=== PATIENT | female | born 1980 | race African-American/Black ===

== ENCOUNTER 2016-12-17 09:52 | Emergency (ER) | payer BC ==
[~2016-12-17] VITALS: Ht 162.6 cm; Wt 71.7 kg
--- NOTE | ~2016-12-17 | CR181 ---
[facility]. [facility] A Service [facility] RADIOLOGY TEXT RESULTS PATIENT: SULMA ROBBINS LOCATION: SED : 76 UNIT #: [id number] AGE: [address]: Josie Peter SEX: F ORDER DR: [id number] [address] [address] [id number] E MR#: [id number] Acc #: [id number] NAME: SULMA ROBBINS : 1980 SEX: F STUDY DATE/TIME: 12/17/2016 UNIT: SED ROOM: STUDY DESCRIPTION: CR Lumbar Spine 2 or 3 Views Attending Physician: Josie Peter Pa-C Ordering Physician: Josie Peter Pa-C Primary Care Physician: [facility] MEDICAL IMAGING REPORT This report is preliminary unless electronic signature is present. EXAM Lumbar spine series, 12/17/2016, 1052 hours. HISTORY Low back pain for 5 days. No known injury. COMPARISON None FINDINGS AP and lateral views of the lumbar spine and a coned lateral view of the lumbosacral junction were performed. There are 5 non-ribbearing lumbar type vertebrae that are normally aligned. Vertebral body and disc heights are normal. Facet joints are normal. Limited views of the sacroiliac joints appear normal. IMPRESSION Negative lumbar spine series. Dictated by... Elin Packer M.D. THIS IS AN ELECTRONICALLY VERIFIED REPORT Elin Packer M.D. at 12/18/2016 9:11 AM HEMALATHA/adry TD: 12/17/2016 15:38 JOB #: [id number] MEDICAL IMAGING REPORT [facility] A [facility] RADIOLOGY TEXT RESULTS PATIENT: SULMA ROBBINS LOCATION: SED : [birth year] UNIT #: [id number] AGE: [address]: Josie Peter SEX: F ORDER DR: Page 1 of 1
[2016-12-17] MEDS ORDERED: ZYRTEC (10:21)
[2016-12-17] MEDS ORDERED: SINGULAIR (10:21)
[2016-12-17] MEDS ORDERED: FLONASE 0.05% N16 G1 (10:21)
[2016-12-17] MEDS ORDERED: PROAIR HFA8.5 GM (10:21)
[2016-12-17 11:03] LABS: URINE SOURCE CLEAN CATCH
[2016-12-17 11:07] LABS: URINE APPEARANCE SL CLOUDY; URINE BILIRUBIN NEG (NEG); URINE BLOOD NEG (NEG); URINE COLOR YELLOW; URINE GLUCOSE NEG (NORM); URINE KETONE NEG (NEG); URINE LEUKOCYTE ESTERASE TRACE (NEG); URINE NITRATE NEG (NEG); URINE PROTEIN NEG (NEG); URINE SPECIFIC GRAVITY 1.025 (1.003-1.035); URINE UROBILINOGEN 0.2 MG/DL (NORM)
[2016-12-17 11:12] LABS: MICRO INDICATED? YES
[2016-12-17 11:38] LABS: URINE RBC 0-2 /[HPF] (0-2)
[2016-12-17 11:39] LABS: URINE BACTERIA 3+ (NEG); URINE SQUAMOUS EPITHELIAL CELL MANY /[HPF]
== END 2016-12-17 11:52 | disposition home or self-care (01) ==
LOC: SED 09:52
PROVIDERS: Physician Assistant
DX: N39.0 Urinary tract infection, site not specified (principal); F17.200 Nicotine dependence, unspecified, uncomplicated
CPT/HCPCS: 72100; 81003; 99284